=== PATIENT | female | born 1995 | race American Indian/Alaskan Native ===

== ENCOUNTER 2018-12-07 09:11 | Emergency (ER) | payer SELFPAY ==
--- NOTE | 2018-12-07 10:25 | Emergency Department Report ---
HPI - General Chief Complaint: Syncope Time Seen by Provider: 12/07/18 10:08 - [facility] HPI: Room 6 The patient is a 23-year-old female presenting with chief complaint of syncope. The patient presents after having a syncopal episode at work. The patient sta johnson she remembers getting to the office. Patient states she had blurred vision and continued to rub her eyes. The patient's station and walked into class of dizzy and continued to have blurred vision initially had a syncopal episode. Patient is uncertain how long she was unconscious for but states she awakened in the ambulance. The patient states there was by standard CPR performed and she now has chest pain. Patient admitted to feeling short of breath with EMS but now complains of pain in her chest. Location: [See above] Duration: [See above] Quality: [See above] Severity: [See above] Modifying factors: [see above] Context: [see above] Mode of transportation: [not driving] ED Past Medical Hx - Past Medical History Hx Asthma: Yes - Surgical History Past Surgical History?: No - Family History Family history: no significant - Social History Smoking Status: Never Smoker Substance Use Type: None (denies illicit drug use) ED Review of Systems ROS: Stated complaint: SYNCOPE Other details as noted in HPI Constitutional: no symptoms reported Eyes: vision change ENT: denies: throat pain Respiratory: shortness of breath Cardiovascular: chest pain, palpitations Endocrine: no symptoms reported Gastrointestinal: denies: abdominal pain Genitourinary: denies: dysuria Musculoskeletal: denies: back pain Neurological: denies: headache Physical Exam - Physical Exam Vital Signs: Vital Signs 12/07/18 12/07/18 09:32 10:21 Temperature 97.4 F L Pulse Rate 82 852 H Respiratory 18 18 Rate Blood Pressure 130/74 Blood Pressure 124/82 [Left] O2 Sat by Pulse 100 100 Oximetry Physical Exam: GENERAL: The patient is well-developed well-nourished female lying on stretcher not appearing to be in acute distress. [] HEENT: Normocephalic. Atraumatic. Extraocular motions are intact. Patient has moist mucous membranes. NECK: Supple. Trachea midline CHEST/LUNGS: Clear to auscultation. There is no respiratory distress noted. HEART/CARDIOVASCULAR: Regular. There is no tachycardia. There is no gallop rub or murmur. ABDOMEN: Abdomen is soft, nontender. Patient has normal bowel sounds. There is no abdominal distention. SKIN: There is no rash. There is no edema. There is no diaphoresis. NEURO: The patient is awake, alert, and oriented. The patient is cooperative. The patient has no focal neurologic deficits. The patient has normal speech. Cranial nerves II through XII grossly intact, no drift MUSCULOSKELETAL: There is no evidence of acute injury. ED Course Vital Signs 12/07/18 12/07/18 09:32 10:21 Temperature 97.4 F L Pulse Rate 82 852 H Respiratory 18 18 Rate Blood Pressure 130/74 Blood Pressure 124/82 [Left] O2 Sat by Pulse 100 100 Oximetry ED Medical Decision Making - Lab Data Result diagrams: 12/07/18 10:24 12/07/18 10:24 Laboratory Tests 12/07/18 12/07/18 12/07/18 10:20 10:20 10:24 WBC 5.8 RBC 4.97 Hgb 14.7 H Hct 43.5 H MCV 87 MCH 30 MCHC 34 RDW 13.2 Plt Count 319 Lymph % (Auto) 18.1 Cocke % (Auto) 6.8 Eos % (Auto) 0.2 Baso % (Auto) 0.5 Lymph # 1.1 L Cocke # 0.4 Eos # 0.0 Baso # 0.0 Seg Neutrophils % 74.4 H Seg Neutrophils # 4.3 PT INR APTT Sodium Potassium Chloride Carbon Dioxide Anion Gap BUN Creatinine Estimated GFR BUN/Creatinine Ratio Glucose Calcium Magnesium Total Bilirubin AST ALT Alkaline Phosphatase Total Creatine Kinase CK-MB (CK-2) CK-MB (CK-2) Rel Index Troponin T Total Protein Albumin Albumin/Globulin Ratio TSH Free T4 HCG, Qual Urine Color Straw Urine Turbidity Clear Urine pH 7.0 Ur Specific Florence 1.009 Urine Protein <15 mg/dl Urine Glucose (UA) Neg Urine Ketones Neg Urine Blood Neg Urine Nitrite Neg Ur Reducing Substances Not Reportable Urine Bilirubin Neg Urine Ictotest Not Reportable Urine Urobilinogen < 2.0 Ur Leukocyte Esterase Tr Urine WBC (Auto) 1.0 Urine RBC (Auto) 1.0 U Epithel Cells (Auto) 1.0 Urine Mucus Few Urine Opiates Screen Presumptive negative Urine Methadone Screen Presumptive negative Ur Barbiturates Screen Presumptive negative Ur Phencyclidine Scrn Presumptive negative Ur Amphetamines Screen Presumptive negative U Benzodiazepines Scrn Presumptive negative Urine Cocaine Screen Presumptive negative U Marijuana (THC) Screen Presumptive positive Drugs of Abuse Note Disclamer Plasma/Serum Alcohol 12/07/18 12/07/18 12/07/18 10:24 10:24 10:24 WBC RBC Hgb Hct MCV MCH MCHC RDW Plt Count Lymph % (Auto) Cocke % (Auto) Eos % (Auto) Baso % (Auto) Lymph # Cocke # Eos # Baso # Seg Neutrophils % Seg Neutrophils # PT 13.1 INR 0.94 APTT 24.1 L Sodium 138 Potassium 4.2 Chloride 118.3 H Carbon Dioxide 22 Anion Gap 2 BUN 12 Creatinine 0.8 Estimated GFR > 60 BUN/Creatinine Ratio 15 Glucose 109 H Calcium 9.7 Magnesium Total Bilirubin 0.70 AST 20 ALT 10 Alkaline Phosphatase 60 Total Creatine Kinase 144 H CK-MB (CK-2) < 1.0 CK-MB (CK-2) Rel Index 0.6 Troponin T < 0.010 Total Protein 8.0 Albumin 4.6 Albumin/Globulin Ratio 1.4 TSH Free T4 HCG, Qual Urine Color Urine Turbidity Urine pH Ur Specific Florence Urine Protein Urine Glucose (UA) Urine Ketones Urine Blood Urine Nitrite Ur Reducing Substances Urine Bilirubin Urine Ictotest Urine Urobilinogen Ur Leukocyte Esterase Urine WBC (Auto) Urine RBC (Auto) U Epithel Cells (Auto) Urine Mucus Urine Opiates Screen Urine Methadone Screen Ur Barbiturates Screen Ur Phencyclidine Scrn Ur Amphetamines Screen U Benzodiazepines Scrn Urine Cocaine Screen U Marijuana (THC) Screen Drugs of Abuse Note Plasma/Serum Alcohol < 0.01 12/07/18 12/07/18 12/07/18 10:24 10:24 10:24 WBC RBC Hgb Hct MCV MCH MCHC RDW Plt Count Lymph % (Auto) Cocke % (Auto) Eos % (Auto) Baso % (Auto) Lymph # Cocke # Eos # Baso # Seg Neutrophils % Seg Neutrophils # PT INR APTT Sodium Potassium Chloride Carbon Dioxide Anion Gap BUN Creatinine Estimated GFR BUN/Creatinine Ratio Glucose Calcium Magnesium 2.10 Total Bilirubin AST ALT Alkaline Phosphatase Total Creatine Kinase CK-MB (CK-2) CK-MB (CK-2) Rel Index Troponin T Total Protein Albumin Albumin/Globulin Ratio TSH 0.515 Free T4 1.18 HCG, Qual Negative Urine Color Urine Turbidity Urine pH Ur Specific Florence Urine Protein Urine Glucose (UA) Urine Ketones Urine Blood Urine Nitrite Ur Reducing Substances Urine Bilirubin Urine Ictotest Urine Urobilinogen Ur Leukocyte Esterase Urine WBC (Auto) Urine RBC (Auto) U Epithel Cells (Auto) Urine Mucus Urine Opiates Screen Urine Methadone Screen Ur Barbiturates Screen Ur Phencyclidine Scrn Ur Amphetamines Screen U Benzodiazepines Scrn Urine Cocaine Screen U Marijuana (THC) Screen Drugs of Abuse Note Plasma/Serum Alcohol - Radiology Data Radiology results: report reviewed (CT head, CT chest), image reviewed (CT head, CT chest) [address] [address] Cat Scan Report Signed Patient: JONI HUANG MR#: [id number] [birth year] : 1995 Acct:[id number] Age/Sex: 23 / F ADM Date: 12/07/18 Loc: ED Attending Dr: Ordering Physician: SCOTTY MONTOYA MD Date of Service: 12/07/18 Procedure(s): CT head/brain wo con Accession Number(s): [id number] cc: SCOTTY MONTOYA MD CT HEAD WITHOUT CONTRAST: HISTORY: Syncope. TECHNIQUE: Sequential 2.5mm CT images. COMPARISON: none. FINDINGS: Cerebral Parenchyma: Within normal limits. Cerebellum: Within normal limits. Brainstem: Within normal limits. Ventricles: Normal. Sella: Normal. Extra-axial spaces: Normal. Basal Cisterns: Normal. Intracranial Hemorrhage: None. Midline Shift: None. Calvarium: Normal. Sinuses: Normal. Mastoid Air Cells: Normal. Visualized Orbits: Normal. IMPRESSION: Cranial CT scan within normal limits. Transcribed By: TTR Dictated By: CARISSA LIMON JR, MD Electronically Authenticated By: CARISSA LIMON JR, MD Signed Date/Time: 12/07/18 1518 DD/ 17 TD/TT: 12/07/[address] [address] Cat Scan Report Signed Patient: JONI HUANG MR#: [id number] [birth year] : 1995 Acct:[id number] Age/Sex: 23 / F ADM Date: 12/07/18 Loc: ED Attending Dr: Ordering Physician: SCOTTY MONTOYA MD Date of Service: 12/07/18 Procedure(s): CT angio chest Accession Number(s): [id number] cc: SCOTTY MONTOYA MD CTA CHEST: HISTORY: Syncope, chest pain. COMPARISON: none. TECHNIQUE: Helical CT in 1.25mm intervals following IV contrast. Pulmonary embolus protocol. Sagittal and coronal reformatted images. Rotational MIP images. FINDINGS: Contrast bolus is satisfactory. No pulmonary embolus is identified. Thyroid gland: Normal. Tracheobronchial tree: Normal. Esophagus: Normal. Heart: Normal. Pericardium: Normal. Mediastinum: Normal. Lung Ibanez: Normal. Pleural Spaces: Normal. Musculoskeletal: Normal. IMPRESSION: No evidence for pulmonary embolus. Unremarkable CT chest with contrast. Transcribed By: TTR Dictated By: CARISSA LIMON JR, MD Electronically Authenticated By: CARISSA LIMON JR, MD Signed Date/Time: 12/07/181523 DD/ 23 TD/TT: 12/07/181523 - Differential Diagnosis vasovagal syncope, dehydration, dysrhythmia, PE, intracranial mass Critical care attestation.: If time is entered above; I have spent that time in minutes in the direct care o f this critically ill patient, excluding procedure time. ED Disposition Clinical Impression: Syncope Disposition: DC-01 TO HOME OR SELFCARE Is pt being admited?: No Does the pt Need Aspirin: No Condition: Stable Instructions: Syncope (ED) Additional Instructions: Return to the emergency department immediately should you develop worsening symptoms, fever, inability to tolerate food or liquid or any other concerns. Referrals: [facility] [Outside] - 3-5 Days Time of Disposition: 15:38
[2018-12-07 10:42] LABS: Basophils % (Auto) 0.5 % (0.0-1.8); Eosinophils % (Auto) 0.2 % (0.0-4.3); Hematocrit 43.5 % (30.3-42.9); Hemoglobin 14.7 gm/dl (10.1-14.3); Lymphocytes # (Auto) 1.1 K/mm3 (1.2-5.4); Lymphocytes % (Auto) 18.1 % (13.4-35.0); Mean Corpuscular HGB Conc 34 % (30-34); Mean Corpuscular Volume 87 fl (79-97); Monocytes # (Auto) 0.4 K/mm3 (0.0-0.8); Monocytes % (Auto) 6.8 % (0.0-7.3); Platelet Count 319 K/mm3 (140-440); Red Blood Count 4.97 M/mm3 (3.65-5.03); Red Cell Distribution Width 13.2 % (13.2-15.2)
[2018-12-07 10:50] LABS: Bilirubin,Urine NEG (Negative); Blood,Urine NEG (Negative); Color,Urine Straw (Yellow); Mucus,Urine FEW /HPF; Protein,Urine <15 mg/dL mg/dL (Negative); Urobilinogen,Urine < 2.0 mg/dL (<2.0)
[2018-12-07] MEDS ORDERED: NACL 0.9% 1000 ML 1,000 ML IV ONE (10:53)
[2018-12-07 10:55] LABS: Amphetamine Screen,Urine PRESUMPTIVE NEGATIVE; Benzodiazepines Screen,Urine PRESUMPTIVE NEGATIVE; Cocaine Screen,Urine PRESUMPTIVE NEGATIVE; Methadone Screen,Urine PRESUMPTIVE NEGATIVE; Opiate Screen,Urine PRESUMPTIVE NEGATIVE
[2018-12-07] MEDS ORDERED: NACL 0.45% 1000 ML 1,000 ML IV ONE (10:57)
[2018-12-07 11:07] LABS: Alanine Aminotransferase 10 units/L (7-56); Albumin 4.6 g/dL (3.9-5); BUN/Creatinine Ratio 15; Blood Urea Nitrogen 12 mg/dL (7-17); Calcium 9.7 mg/dL (8.4-10.2); Creatine Kinase MB < 1.0 ng/mL (0.0-4.0); Hemolysis Index 15
[2018-12-07 11:08] LABS: INR 0.94 (0.87-1.13); Partial Thromboplastin Time 24.1 Sec. (24.2-36.6)
[2018-12-07 11:10] LABS: Cannabinoid Screen,Urine PRESUMPTIVE POSITIVE
[2018-12-07 11:11] LABS: Free T4 (Free Thyroxine) 1.18 ng/dL (0.76-1.46)
--- NOTE | 2018-12-07 15:23 | Cat Scan Report ---
CT HEAD WITHOUT CONTRAST: HISTORY: Syncope. TECHNIQUE: Sequential 2.5mm CT images. COMPARISON: none. FINDINGS: Cerebral Parenchyma: Within normal limits. Cerebellum: Within normal limits. Brainstem: Within normal limits. Ventricles: Normal. Sella: Normal. Extra-axial spaces: Normal. Basal Cisterns: Normal. Intracranial Hemorrhage: None. Midline Shift: None. Calvarium: Normal. Sinuses: Normal. Mastoid Air Cells: Normal. Visualized Orbits: Normal. IMPRESSION: Cranial CT scan within normal limits.
--- NOTE | 2018-12-07 15:29 | Cat Scan Report ---
CTA CHEST: HISTORY: Syncope, chest pain. COMPARISON: none. TECHNIQUE: Helical CT in 1.25mm intervals following IV contrast. Pulmonary embolus protocol. Sagittal and coronal reformatted images. Rotational MIP images. FINDINGS: Contrast bolus is satisfactory. No pulmonary embolus is identified. Thyroid gland: Normal. Tracheobronchial tree: Normal. Esophagus: Normal. Heart: Normal. Pericardium: Normal. Mediastinum: Normal. Lung Ibanez: Normal. Pleural Spaces: Normal. Musculoskeletal: Normal. IMPRESSION: No evidence for pulmonary embolus. Unremarkable CT chest with contrast.
[2018-12-07 16:04] VITALS: BP 115/70
== END 2018-12-07 15:40 | disposition home or self-care (01) ==
LOC: ED 09:11
DX: R55 Syncope and collapse (principal); H53.8 Other visual disturbances; R06.02 Shortness of breath; R07.89 Other chest pain; J45.909 Unspecified asthma, uncomplicated; Z88.6 Allergy status to analgesic agent; Z88.1 Allergy status to other antibiotic agents; Z88.2 Allergy status to sulfonamides
CPT/HCPCS: 36415; 70450; 71275; 80053; 80307; 81001; 82550; 82553; 83735; 84439; 84443; 84484; 84703; 85025; 85610; 85730; 93005; 93010; 96360; 99284; G0480; J7030; Q9967; 80320

== ENCOUNTER 2019-06-01 09:40 | Emergency (ER) | payer SELFPAY ==
--- NOTE | 2019-06-01 10:58 | Emergency Department Report ---
HPI - General Chief Complaint: Abdominal Pain Time Seen by Provider: 06/01/19 10:40 - HPI HPI: Room 34 The patient is a 24-year-old female presenting with chief complaint of right flank pain. The patient states his symptoms began her umbilical abdominal pain. Patient states this morning at 07:00 she developed pain in her right flank that has been intermittent. She denies dysuria, hematuria or vaginal discharge. Patient denies fever. Patient currently gets her pain is currently 8.5/10. Patient states her LMP was 05/07/2019 and was within normal limits Location: [See above] Duration: [See above] Quality: [See above] Severity: [See above] Timing: [See above] Context: [See above] Modifying factors: [See above] Associated signs and symptoms: [see above] ED Past Medical Hx - Past Medical History Hx Asthma: Yes - Surgical History Past Surgical History?: No - Family History Family history: no significant - Social History Smoking Status: Never Smoker Substance Use Type: None - Medications Home Medications: Home Medications Medication Instructions Recorded Confirmed Last Taken Type Ciprofloxacin HCl [Ciprofloxacin 500 mg PO Q12HR #14 tab 06/01/19 Unknown Rx TAB] Ibuprofen [Motrin 800 MG tab] 800 mg PO Q8HR PRN #20 tablet 06/01/19 Unknown Rx traMADol [Ultram] 50 mg PO Q6HR PRN #10 tablet 06/01/19 Unknown Rx ED Review of Systems ROS: Stated complaint: R SIDE PAIN Other details as noted in HPI Constitutional: denies: fever Eyes: denies: eye pain ENT: denies: throat pain Respiratory: no symptoms reported Cardiovascular: denies: chest pain Endocrine: no symptoms reported Gastrointestinal: abdominal pain Genitourinary: denies: dysuria, hematuria, discharge, abnormal menses Musculoskeletal: back pain Neurological: denies: headache Physical Exam - Physical Exam Vital Signs: Vital Signs 06/01/19 06/01/19 09:59 10:02 Temperature 97.6 F 97.6 F Pulse Rate 83 80 Respiratory 16 16 Rate Blood Pressure 110/71 110/71 O2 Sat by Pulse 100 100 Oximetry Physical Exam: GENERAL: The patient is well-developed well-nourished female lying on stretcher not appearing to be in acute distress. [] HEENT: Normocephalic. Atraumatic. Extraocular motions are intact. Patient has moist mucous membranes. NECK: Supple. Trachea midline CHEST/LUNGS: Clear to auscultation. There is no respiratory distress noted. HEART/CARDIOVASCULAR: Regular. There is no tachycardia. There is no gallop rub or murmur. ABDOMEN: Abdomen is soft, with mild discomfort to palpation in the right lower quadrant.. Patient has normal bowel sounds. There is no abdominal distention. SKIN: There is no rash. There is no edema. There is no diaphoresis. NEURO: The patient is awake, alert, and oriented. The patient is cooperative. The patient has no focal neurologic deficits. The patient has normal speech and gait. MUSCULOSKELETAL: There is right CVA tenderness. There is no evidence of acute injury. ED Course Vital Signs 06/01/19 06/01/19 09:59 10:02 Temperature 97.6 F 97.6 F Pulse Rate 83 80 Respiratory 16 16 Rate Blood Pressure 110/71 110/71 O2 Sat by Pulse 100 100 Oximetry ED Medical Decision Making - Lab Data Result diagrams: 06/01/19 12:32 06/01/19 12:32 - Radiology Data Radiology results: report reviewed (CT abdomen and pelvis), image reviewed (CT abdomen and pelvis) CT abdomen and pelvis. (read by radiologist) (-negative abdomen and pelvis - Differential Diagnosis pyelonephritis, renal colic, Critical care attestation.: If time is entered above; I have spent that time in minutes in the direct care of this critically ill patient, excluding procedure time. ED Disposition Clinical Impression: Right flank pain, UTI (urinary tract infection) Disposition: DC-01 TO HOME OR SELFCARE Is pt being admited?: No Does the pt Need Aspirin: No Condition: Stable Instructions: Abdominal Pain (ED) Additional Instructions: Return to the emergency department should you develop worsening symptoms, inability to tolerate food or liquids, high fever or any other concerns Prescriptions: Ciprofloxacin HCl [Ciprofloxacin TAB] 500 mg PO Q12HR #14 tab Ibuprofen [Motrin 800 MG tab] 800 mg PO Q8HR PRN #20 tablet PRN Reason: Pain, Moderate (4-6) traMADol [Ultram] 50 mg PO Q6HR PRN #10 tablet PRN Reason: Pain Referrals: ANKUR ALLAN MD [Primary Care Provider] - 3-5 Days Time of Disposition: 14:20
[2019-06-01 11:52] LABS: Bacteria,Urine 1+ /HPF (Negative); Bilirubin,Urine NEG (Negative); Blood,Urine LG (Negative); Color,Urine Yellow (Yellow); Mucus,Urine 1+ /HPF; Urobilinogen,Urine < 2.0 mg/dL (<2.0)
[2019-06-01 11:55] LABS: HCG Qualitative,Urine Negative (Negative)
[2019-06-01 12:57] LABS: Basophils % (Auto) 0.4 % (0.0-1.8); Eosinophils % (Auto) 0.1 % (0.0-4.3); Hemoglobin 14.3 gm/dl (10.1-14.3); Lymphocytes # (Auto) 1.1 K/mm3 (1.2-5.4); Lymphocytes % (Auto) 11.1 % (13.4-35.0); Mean Corpuscular HGB Conc 33 % (30-34); Mean Corpuscular Volume 85 fl (79-97); Monocytes # (Auto) 0.6 K/mm3 (0.0-0.8); Monocytes % (Auto) 5.9 % (0.0-7.3); Platelet Count 285 K/mm3 (140-440); Red Blood Count 5.04 M/mm3 (3.65-5.03); Red Cell Distribution Width 14.2 % (13.2-15.2)
[2019-06-01 13:13] LABS: BUN/Creatinine Ratio 17; Blood Urea Nitrogen 12 mg/dL (7-17); Calcium 9.5 mg/dL (8.4-10.2); Hemolysis Index 3
--- NOTE | 2019-06-01 13:59 | Cat Scan Report ---
CT ABDOMEN AND PELVIS CONTRAST HISTORY: Right flank and right lower quadrant pain. COMPARISON: None TECHNIQUE: Routine abdominal and pelvic CT exam performed . All CT scans at this location are perform ed using CT dose reduction for ALARA by means of automated exposure control. FINDINGS: CT ABDOMEN: Lung Bases: No significant abnormality. Liver: No significant abnormality. Biliary: No significant abnormality. Spleen: No significant abnormality. Unenlarged. Pancreas: No significant abnormality. Adrenals: No significant abnormality. Kidneys: No significant abnormality. Renal collecting systems and ureters are nondilated. No urinary calculus. Lymphatics: No lymphadenopathy. Vasculature: No significant abnormality. Bowel/Peritoneum: No significant abnormality. No free air. No free fluid. Appendix not well visualize d. No pericecal inflammation. CT PELVIC: : No significant abnormality. Normal uterus and ovaries. Lymphatics: No lymphadenopathy. Osseous Structures: No aggressive appearing osseous lesions. Additional Findings: No adnexal mass or free fluid. IMPRESSION: 1. Negative abdomen and pelvis. Signer Name: Juventino Padilla MD Signed: 06/01/2019 1:55 PM Workstation Name: [id number]
[2019-06-01 15:02] VITALS: BP 114/69
== END 2019-06-01 15:02 | disposition home or self-care (01) ==
LOC: ED 09:40
DX: N39.0 Urinary tract infection, site not specified (principal); J45.909 Unspecified asthma, uncomplicated
CPT/HCPCS: 36415; 74177; 80048; 81001; 81025; 85025